=== PATIENT | male | born 2000 | race Caucasian/White ===

== ENCOUNTER 2020-11-17 23:18 | Emergency (ER) | payer BC ==
[~2020-11-17] VITALS: Ht 182.9 cm; Wt 72.6 kg
[2020-11-18 00:10] LABS: Urine Amorphous Crystal FEW /hpf (None Seen); Urine Bacteria FEW /hpf (None Seen); Urine Blood 3+ /uL (Negative); Urine Hyaline Cast FEW /lpf (0 - 2); Urine Mucus FEW (None Seen); Urine Specific Gravity 1.018 (1.001-1.035); Urine WBC 607 /hpf (0 - 3); Urine WBC Clumps PRESENT /hpf (None Seen)
[2020-11-18 03:12] VITALS: BP 137/85
[2020-11-18] MEDS ORDERED: cefTRIAXone SOD 1,000 MG VL IM ONE (03:15)
[2020-11-18] MEDS ORDERED: AZITHROMYCIN 250 MG TAB PO ONE (03:15)
== END 2020-11-18 04:06 | disposition home or self-care (01) ==
LOC: ER 23:24
DX: N39.0 Urinary tract infection, site not specified (principal); R30.0 Dysuria; R31.9 Hematuria, unspecified; M54.5 Low back pain; R39.15 Urgency of urination; R35.0 Frequency of micturition
CPT/HCPCS: 81001; 96372; 99283; J0696